=== PATIENT | female | born 1960 | race Caucasian/White ===

== ENCOUNTER 2023-12-12 14:29 | Emergency (ER) | payer MEDICAID, OTHER ==
[~2023-12-12] VITALS: Ht 170.2 cm; Wt 87.0 kg
[2023-12-12 15:47] VITALS: BP 113/76; PULSE 107; RESP 19; TEMP 98.7; O2SAT 95
[2023-12-12] MEDS ORDERED: PRED20TA2 PO (16:16)
[2023-12-12] MEDS ORDERED: AZIT500T66 PO (16:16)
[2023-12-12] MEDS ORDERED: BENZ200C64 PO (16:16)
== END 2023-12-12 16:30 | disposition home or self-care (01) ==
LOC: ER 14:29
DX: J21.9 Acute bronchiolitis, unspecified (principal); J02.9 Acute pharyngitis, unspecified; I10 Essential (primary) hypertension; F17.210 Nicotine dependence, cigarettes, uncomplicated; R07.89 Other chest pain
CPT/HCPCS: 71046

== ENCOUNTER 2023-12-18 11:13 | Emergency (ER) | payer MEDICAID ==
[~2023-12-18] VITALS: Ht 170.2 cm; Wt 80.0 kg
[~2023-12-18 11:13] MED LIST: AZIT500T66 PO; BENZ200C64 PO; PRED20TA2 PO
[2023-12-18 12:13] VITALS: BP 152/98; PULSE 84; RESP 20; TEMP 98.6; O2SAT 96
[2023-12-18] MEDS ORDERED: ALBU108A5 IN (12:50)
[2023-12-18] MEDS ORDERED: PROM1SOL4 PO (12:50)
== END 2023-12-18 12:56 | disposition home or self-care (01) ==
LOC: ER 11:13
DX: J20.9 Acute bronchitis, unspecified (principal); R09.81 Nasal congestion; I10 Essential (primary) hypertension; F17.210 Nicotine dependence, cigarettes, uncomplicated
CPT/HCPCS: 71045

== ENCOUNTER 2024-02-16 09:36 | Emergency (ER) | payer MEDICAID ==
[~2024-02-16] VITALS: Ht 167.6 cm; Wt 86.2 kg
[~2024-02-16 09:36] MED LIST changes: +ALBU108A5 IN; +PROM1SOL4 PO
[2024-02-16 09:51] VITALS: TEMP 98.9
[2024-02-16 09:56] VITALS: BP 138/80; PULSE 71; RESP 17; O2SAT 95
[2024-02-16 11:13] LABS: Urine Bacteria None Seen /hpf (None Seen)
[2024-02-16 11:32] LABS: Urine Blood 1+ /uL (Negative); Urine Clarity Turbid (Clear); Urine Color Colorless (Yellow); Urine Protein, UAD TRACE (Negative); Urine Specific Gravity 1.016 (1.001-1.035); Urine Urobilinogen Normal (Negative); Urine WBC 932 /hpf (0 - 5)
[2024-02-16] MEDS ORDERED: NITR-87 PO (12:26)
[2024-02-16] MEDS ORDERED: PHEN-922 PO (12:26)
== END 2024-02-16 12:39 | disposition home or self-care (01) ==
LOC: ER 09:36
DX: N30.90 Cystitis, unspecified without hematuria (principal); I10 Essential (primary) hypertension; R56.9 Unspecified convulsions; F17.210 Nicotine dependence, cigarettes, uncomplicated; Z79.899 Other long term (current) drug therapy
CPT/HCPCS: 81001

== ENCOUNTER 2024-04-08 11:16 | Inpatient (IN) | payer MEDICAID ==
[~2024-04-08] VITALS: Ht 170.2 cm; Wt 87.0 kg
[~2024-04-08 11:16] MED LIST changes: +NITR-87 PO; +PHEN-922 PO
[2024-04-08 12:11] LABS: Basophils # (auto) 0.1 10 ^3/uL (0-0.2); Basophils % (auto) 0.7 % (0.0-2.0); Eosinophils # (auto) 0.2 10 ^3/uL (0-0.8); Eosinophils % (auto) 2.3 % (0.0-7.0); Hematocrit 41.8 % (36.0-46.0); Hemoglobin 14.3 g/dL (12.2-16.2); Lymphocytes # (auto) 2.4 10 ^3/uL (0.4-5.4); Lymphocytes % (auto) 27.9 % (10.0-50.0); Mean Corpuscular Hemoglobin 31.6 pg (28.0-32.0); Mean Corpuscular Hgb Conc. 34.3 g/dL (32.0-36.0); Mean Corpuscular Volume 92.1 fL (80.0-100.0); Monocytes # (auto) 0.4 10 ^3/uL (0-1.3); Monocytes % (auto) 4.5 % (0.0-12.0); Neutrophils # (auto) 5.5 10 ^3/uL (1.6-8.6); Neutrophils % (auto) 64.6 % (37.0-80.0); Platelet Count (auto) 277 10^3/uL (140-450); Red Blood Cells 4.53 10^6/uL (4.0-5.20); Red Cell Distribution Width 13.1 % (11.8-14.3); White Blood Cell 8.6 10^3/uL (4.4-10.8)
[2024-04-08 12:29] LABS: Anion Gap 5 (5-15); Carbon Dioxide 27 mmol/L (20-30); Chloride 109 mmol/L (98-107); Potassium 3.3 mmol/L (3.5-5.1); Sodium 141 mmol/L (136-145)
[2024-04-08 12:30] LABS: Calcium 9.4 mg/dL (8.7-10.4)
[2024-04-08 12:35] LABS: Blood Urea Nitrogen 8 mg/dL (9-23); Glucose 101 mg/dL (74-106)
[2024-04-08 18:35] VITALS: PULSE 62; RESP 15; O2SAT 99
[2024-04-08 19:01] LABS: Urine Bacteria FEW /hpf (None Seen); Urine Blood Negative /uL (Negative); Urine Clarity Turbid (Clear); Urine Color Yellow (Yellow); Urine Mucus FEW (None Seen); Urine Protein, UAD 1+ (Negative); Urine Specific Gravity 1.032 (1.001-1.035); Urine Urobilinogen Normal (Negative); Urine WBC 38 /hpf (0 - 5)
[2024-04-08 20:00] VITALS: PULSE 68; RESP 16; O2SAT 97
[2024-04-08] MEDS ORDERED: hydrALAZINE HCL 20 MG/ML VL IV PRN (21:30)
[2024-04-08] MEDS ORDERED: MECLIZINE HCL 25 MG TAB PO PRN (21:30)
[2024-04-08] MEDS: ATORVASTATIN 20 MG TAB PO SCH (22:06)
[2024-04-08] MEDS: levETIRAcetam 500 mg/100ml 100 ML IV SCH (22:17)
[2024-04-09] VITALS (10 sets, daily range): BP systolic 96–143; BP diastolic 59–80; PULSE 56–71; RESP 15–20; TEMP 98.2–98.6; O2SAT 94–97
[2024-04-09] MEDS ORDERED: MEMA1TAB3 PO (02:35)
[2024-04-09] MEDS ORDERED: LAMO200T2 PO (02:35)
[2024-04-09] MEDS ORDERED: LISI10TA34 PO (02:35)
[2024-04-09] MEDS ORDERED: KEP500T PO (02:35)
[2024-04-09] MEDS ORDERED: LACO10SO3 PO (02:35)
[2024-04-09] MEDS ORDERED: PHEN95TA17 OR (02:35)
[2024-04-09] MEDS ORDERED: MECL12.586 PO (02:35)
[2024-04-09] MEDS: cefTRIAXone 1GM/50ML D5W 50 ML IV ONE (03:05)
[2024-04-09] MEDS: SODIUM CHLORIDE 0.9% 1,000 ML IV ONE (03:05)
[2024-04-09] MEDS: ASPirin 81 mg TAB PO SCH (08:59)
[2024-04-09] MEDS: lamoTRIgine 100 MG TAB PO SCH (22:28)
[2024-04-09] MEDS: LACOSAMIDE 50 MG TAB PO SCH (22:29)
[2024-04-10 01:00] VITALS: BP 141/74; PULSE 68; RESP 15; TEMP 97.9; O2SAT 96
[2024-04-10 05:00] VITALS: BP 141/73; PULSE 71; RESP 15; TEMP 98.3; O2SAT 97
[2024-04-10 07:30] VITALS: PULSE 71; RESP 19
[2024-04-10 09:10] VITALS: BP 145/76; PULSE 81; RESP 16; TEMP 98.2; O2SAT 95
[2024-04-10] MEDS: cefTRIAXone 1GM/50ML D5W 50 ML IV SCH (09:24)
[2024-04-10] MEDS: ACETAMINOPHEN 325 MG TAB PO PRN (10:29)
[2024-04-10 13:00] VITALS: BP 134/86; PULSE 73; RESP 18; TEMP 97.6; O2SAT 96
[2024-04-10] MEDS ORDERED: CEPH500C PO (15:47)
[2024-04-10 17:12] VITALS: BP 127/79; PULSE 70; RESP 18; TEMP 98.2; O2SAT 97
== END 2024-04-10 18:00 | disposition home or self-care (01) | DRG 48 ==
LOC: ER 11:16 → TELE 17:47 → TELE-CENTR 23:44
PROVIDERS: ADMIT Internal Medicine; ATTEND Internal Medicine
DX: G90.9 Disorder of the autonomic nervous system, unspecified (principal); N30.01 Acute cystitis with hematuria; F17.210 Nicotine dependence, cigarettes, uncomplicated; I10 Essential (primary) hypertension
CPT/HCPCS: 36415; 70450; 70551; 80048; 81001; 82962; 84484; 85025; 93005; 96365; 97163; G0378

== ENCOUNTER 2024-04-28 09:04 | Emergency (ER) | payer MEDICAID ==
[~2024-04-28 09:04] MED LIST changes: +CEPH500C PO; +KEP500T PO; +LACO10SO3 PO; +LAMO200T2 PO; +LISI10TA34 PO; +MECL12.586 PO; +MEMA1TAB3 PO; +PHEN95TA17 OR
[2024-04-28] MEDS: MEPERIDINE HCL (50 MG/ML) 1 ML VIAL IM ONE (10:04)
[2024-04-28] MEDS: ONDANSETRON ODT 4 MG TAB PO ONE (10:04)
[2024-04-28] MEDS ORDERED: HYDR-4798 PO (10:31)
[2024-04-28 10:54] VITALS: BP 130/82; PULSE 89; RESP 18; TEMP 97.9; O2SAT 98
== END 2024-04-28 10:57 | disposition home or self-care (01) ==
LOC: ER 09:04
DX: S32.019A Unspecified fracture of first lumbar vertebra, initial encounter for closed fracture (principal); F17.210 Nicotine dependence, cigarettes, uncomplicated; I10 Essential (primary) hypertension; X58.XXXA Exposure to other specified factors, initial encounter; Y93.89 Activity, other specified; Y92.89 Other specified places as the place of occurrence of the external cause; Y99.8 Other external cause status
CPT/HCPCS: 72100; 96372; 99283; J2175; Q0162